=== PATIENT | male | born 1930 | race Hispanic/Latino ===

== ENCOUNTER 2021-05-18 22:12 | Emergency (ER) | payer OTHER, SELFPAY ==
[2021-05-18 22:53] LABS: #Eosinphils 0.3 thou/uL (0.0-0.7); #Monocytes 0.8 thou/uL (0.11-0.59); #Neutrophils 6.2 thou/uL (1.40-6.50); %Basophils 0.2 % (0.0-1.0); %Eosinophils 3.4 % (0.0-10.0); %Lymphocytes 21.2 % (21.0-51.0); %Monocytes 8.6 % (0.0-10.0); %Neutrophils 66.7 % (42.0-75.0); Hemoglobin 13.7 g/dL (14.0-18.0); Mean Corpuscular HGB CONC 33.6 g/dL (32.0-36.0); Mean Corpuscular Hemoglobin 33.8 pg (27.0-31.0); Mean Platelet Volume 6.8 fL (7.4-10.4); Platelet Count 250 thou/uL (130-400); RBC Distribution Width 12.2 % (11.5-14.5); Red Blood Cell (RBC) Count 4.05 mill/uL (4.70-6.10); White Blood Cell (WBC) Count 9.3 thou/uL (4.8-10.8)
[2021-05-18 23:35] LABS: ALT (SGPT) 22 U/L (8-55); AST (SGOT) 13 U/L (5-34); Albumin 3.9 g/dL (3.4-4.8); Alkaline Phosphatase 77 U/L (40-110); Anion Gap 11 mmol/L (10-20); BUN (Urea Nitrogen) 23 mg/dL (8.4-25.7); Bilirubin, Total 0.3 mg/dL (0.2-1.2); Calc. Creatinine Clearance 0 mL/min (70-130); Calcium 8.7 mg/dL (7.8-10.44); Carbon Dioxide 26 mmol/L (23-31); Chloride 104 mmol/L (98-107); Globulin 2.4 g/dL (2.4-3.5); Glucose 96 mg/dL (83-110); Potassium 4.1 mmol/L (3.5-5.1); Protein, Total 6.3 g/dL (5.8-8.1); Sodium 137 mmol/L (136-145)
== END 2021-05-19 00:32 | disposition home or self-care (01) ==
LOC: ERS 22:12
DX: S01.312A Laceration without foreign body of left ear, initial encounter (principal); W01.10XA Fall on same level from slipping, tripping and stumbling with subsequent striking against unspecified object, initial encounter; Z79.899 Other long term (current) drug therapy
CPT/HCPCS: 70450; 71045; 80053; 84484; 85025; 93005

== ENCOUNTER 2021-07-12 12:04 | Observation (INO) | payer MEDICARE, OTHER, SELFPAY ==
[2021-07-12 12:53] LABS: #Eosinphils 0.2 thou/uL (0.0-0.7); #Lymphocytes 1.1 thou/uL (1.20-3.40); #Monocytes 0.6 thou/uL (0.11-0.59); #Neutrophils 5.2 thou/uL (1.40-6.50); %Basophils 0.4 % (0.0-1.0); %Eosinophils 2.2 % (0.0-10.0); %Lymphocytes 15.7 % (21.0-51.0); %Monocytes 8.7 % (0.0-10.0); Hemoglobin 13.7 g/dL (14.0-18.0); Mean Corpuscular HGB CONC 33.3 g/dL (32.0-36.0); Mean Corpuscular Hemoglobin 33.9 pg (27.0-31.0); Mean Platelet Volume 6.3 fL (7.4-10.4); Platelet Count 267 thou/uL (130-400); RBC Distribution Width 12.5 % (11.5-14.5); Red Blood Cell (RBC) Count 4.05 mill/uL (4.70-6.10); White Blood Cell (WBC) Count 7.1 thou/uL (4.8-10.8)
[2021-07-12 13:14] LABS: ALT (SGPT) 17 U/L (8-55); AST (SGOT) 14 U/L (5-34); Albumin 3.9 g/dL (3.4-4.8); Alkaline Phosphatase 76 U/L (40-110); Anion Gap 12 mmol/L (10-20); BUN (Urea Nitrogen) 14 mg/dL (8.4-25.7); Bilirubin, Total 0.5 mg/dL (0.2-1.2); Calc. Creatinine Clearance 0 mL/min (70-130); Carbon Dioxide 29 mmol/L (23-31); Chloride 106 mmol/L (98-107); Globulin 2.5 g/dL (2.4-3.5); Glucose 104 mg/dL (83-110); Potassium 4.3 mmol/L (3.5-5.1); Protein, Total 6.4 g/dL (5.8-8.1); Sodium 143 mmol/L (136-145)
[2021-07-12] MEDS ORDERED: Atropine Sulfate 1 mg/1 ml Vial IVP PRN (14:09)
[2021-07-12] MEDS ORDERED: Acetaminophen 325 MG TAB PO PRN (14:22)
[2021-07-12] MEDS ORDERED: Ondansetron ODT 4 MG TAB PO PRN (14:22)
[2021-07-12] MEDS ORDERED: Ondansetron PF 4 MG/2 ML Vial IVP PRN (14:22)
[2021-07-12 14:23] LABS: Magnesium 2.2 mg/dL (1.6-2.6); Phosphorus 3.8 mg/dL (2.3-4.7)
[2021-07-12] MEDS ORDERED: Nitroglycerin 0.4 MG TAB (25 Tab Bottle) SL PRN (14:25)
[2021-07-12] MEDS ORDERED: Electrolyte Replacement Protocol 1 EACH FS SCH (14:30)
[2021-07-12] MEDS ORDERED: Sodium Chloride 0.9% 1,000 ML IV SCH (14:30)
[2021-07-12] MEDS ORDERED: Electrolyte Replacement Protocol FS PRN (14:45)
[2021-07-12 15:08] LABS: Troponin I 0.017 ng/mL (< 0.028)
[2021-07-12 19:22] LABS: Troponin I Less than 0.010 ng/mL (< 0.028)
[2021-07-12] MEDS ORDERED: Famotidine 20 MG TAB PO SCH (21:00)
[2021-07-12] MEDS: Senokot S 8.6-50 MG TAB PO SCH (21:33)
[2021-07-12] MEDS: OLANZapine 5 MG TAB PO SCH (21:33)
[2021-07-12] MEDS: OXcarbazepine 300 MG TAB PO SCH (21:33)
[2021-07-13 00:11] LABS: SARS-CoV-2 NAA Rapid Test Not Detected (NotDetected)
[2021-07-13 00:44] LABS: Bacteria/HPF None Seen HPF (None Seen); Bilirubin Negative (Negative); Blood, Urine Negative (Negative); Clarity Clear (Clear); Glucose, Urine (Dipstick) Normal (Negative); Ketone, Urine Negative (Negative); Leukocyte Negative Leu/uL (Negative); Nitrite Negative (Negative); Protein, Urine (Dipstick) Negative (Neg-Trace); RBC/HPF 0-3 HPF (0-3); Specific Gravity, Urine 1.015 (1.002-1.036); Squamous Epithelial 0-3 HPF (0-3); WBC/HPF 0-3 HPF (0-3)
[2021-07-13 00:59] LABS: Urine Culture Reflex No No
[2021-07-13] MEDS ORDERED: hydrALAZINE 20 MG/ML VIAL SLOW IVP PRN (05:44)
[2021-07-13 06:11] LABS: BUN (Urea Nitrogen) Less than 20 mg/dL (8.4-25.7)
[2021-07-13 06:44] LABS: Calc. Creatinine Clearance 52 mL/min (70-130); Calcium 8.7 mg/dL (7.8-10.44); Carbon Dioxide 27 mmol/L (23-31); Chloride 106 mmol/L (98-107); Glucose 92 mg/dL (83-110); Potassium 3.9 mmol/L (3.5-5.1); Sodium 139 mmol/L (136-145)
[2021-07-13 07:13] LABS: Anion Gap 10 mmol/L (10-20)
[2021-07-13] MEDS ORDERED: hydrALAZINE 20 MG/ML VIAL SLOW IVP SCH (08:15)
[2021-07-13] MEDS ORDERED: CEFAZOLIN 1 GM VIAL ONE ×2 (08:38)
[2021-07-13] MEDS ORDERED: Gentamicin 80 MG/2 ML VIAL ONE ×2 (08:38)
[2021-07-13] MEDS ORDERED: ceFAZolin 2 GM/DEX 5% 100 ML BAG ONE ×2 (08:38)
[2021-07-13] MEDS ORDERED: Enoxaparin Sodium 40 MG/0.4 ML SYRINGE SC SCH (09:00)
[2021-07-13] MEDS: Clopidogrel Bisulfate 75 MG TAB PO SCH (10:46)
[2021-07-13] MEDS: Senokot S 8.6-50 MG TAB PO SCH ×2 (10:47→21:09)
[2021-07-13] MEDS: OXcarbazepine 300 MG TAB PO SCH ×2 (10:47→21:09)
[2021-07-13] MEDS: Cyanocobalamin (Vitamin B-12) 1,000 MCG TAB PO SCH (10:47)
[2021-07-13] MEDS: Folic Acid 1 MG TAB PO SCH (10:47)
[2021-07-13] MEDS: Multivit, Therapeutic 1 TAB PO SCH (10:47)
[2021-07-13] MEDS: Polyethylene Glycol 3350 17 GM Packet PO SCH (10:47)
[2021-07-13] MEDS ORDERED: Lidocaine 5% Patch TD SCH (12:45)
[2021-07-13] MEDS ORDERED: HYDROcodone/Acetaminophen 5/325 mg Tablet PO PRN (18:18)
[2021-07-13] MEDS ORDERED: Donepezil HCl 5 MG TAB PO SCH (21:00)
[2021-07-13] MEDS: Metoprolol Tartrate 50 MG TAB PO SCH (21:09)
[2021-07-13] MEDS: OLANZapine 5 MG TAB PO SCH (21:09)
[2021-07-13] MEDS ORDERED: Transdermal Patch Removal TOP SCH (23:59)
[2021-07-14] MEDS ORDERED: Lidocaine 5% Patch TD SCH (09:00)
[2021-07-14] MEDS: Clopidogrel Bisulfate 75 MG TAB PO SCH (09:45)
[2021-07-14] MEDS: Cyanocobalamin (Vitamin B-12) 1,000 MCG TAB PO SCH (09:45)
[2021-07-14] MEDS: Polyethylene Glycol 3350 17 GM Packet PO SCH (09:46)
[2021-07-14] MEDS: Senokot S 8.6-50 MG TAB PO SCH (09:46)
[2021-07-14] MEDS: Folic Acid 1 MG TAB PO SCH (09:46)
[2021-07-14] MEDS: Metoprolol Tartrate 50 MG TAB PO SCH (09:46)
[2021-07-14] MEDS: OXcarbazepine 300 MG TAB PO SCH (09:46)
[2021-07-14] MEDS: Multivit, Therapeutic 1 TAB PO SCH (09:46)
[2021-07-14] MEDS ORDERED: Cephalexin 250 MG CAP PO SCH (12:30)
[2021-07-14 16:46] VITALS: BP 169/74; TEMP 98.7
[2021-07-14] MEDS ORDERED: Transdermal Patch Removal TOP SCH (21:00)
== END 2021-07-14 14:05 ==
LOC: ERS 12:04 → 2NO 13:57
PROVIDERS: ADMIT Internal Medicine; ATTEND Internal Medicine
PROC: 0JH606Z Insertion of Pacemaker, Dual Chamber into Chest Subcutaneous Tissue and Fascia, Open Approach (ICD-10-PCS; principal; 2021-07-13)
PROC: 02H63JZ Insertion of Pacemaker Lead into Right Atrium, Percutaneous Approach (ICD-10-PCS; 2021-07-13)
PROC: 02HK3JZ Insertion of Pacemaker Lead into Right Ventricle, Percutaneous Approach (ICD-10-PCS; 2021-07-13)
DX: R00.1 Bradycardia, unspecified (principal); R55 Syncope and collapse; I25.10 Atherosclerotic heart disease of native coronary artery without angina pectoris; G30.9 Alzheimer's disease, unspecified; F02.80 Dementia in other diseases classified elsewhere, unspecified severity, without behavioral disturbance, psychotic disturbance, mood disturbance, and anxiety; K21.9 Gastro-esophageal reflux disease without esophagitis; I48.0 Paroxysmal atrial fibrillation; I50.9 Heart failure, unspecified; J44.9 Chronic obstructive pulmonary disease, unspecified; D53.9 Nutritional anemia, unspecified; M19.90 Unspecified osteoarthritis, unspecified site; I08.8 Other rheumatic multiple valve diseases; Z66 Do not resuscitate; Z79.02 Long term (current) use of antithrombotics/antiplatelets; Z79.899 Other long term (current) drug therapy; Z88.6 Allergy status to analgesic agent; Z88.8 Allergy status to other drugs, medicaments and biological substances; Z91.041 Radiographic dye allergy status; Z95.1 Presence of aortocoronary bypass graft; Z95.5 Presence of coronary angioplasty implant and graft; Z20.822 Contact with and (suspected) exposure to COVID-19
CPT/HCPCS: 33208; 71045 ×2; 80048; 80053; 81001; 82607; 82746; 83735; 84100; 84484 ×2; 85025; 93005; 93306; 94760; 97116; 97139 ×5; 99285; C1785; C1898 ×2; U0002; 36415; 96374; 96376; G0378; J0360; J0690; J1580; J7050

== ENCOUNTER 2022-01-04 21:40 | Emergency (ER) | payer MEDICARE ==
[2022-01-04 22:42] LABS: Hemoglobin 13.4 g/dL (14.0-18.0); Mean Corpuscular Hemoglobin 33.5 pg (27.0-31.0); Mean Platelet Volume 6.2 fL (7.4-10.4); Platelet Count 240 thou/uL (130-400); RBC Distribution Width 12.3 % (11.5-14.5); Red Blood Cell (RBC) Count 4.02 mill/uL (4.70-6.10)
[2022-01-04 22:50] LABS: Bacteria/HPF None Seen HPF (None Seen); Bilirubin Negative (Negative); Blood, Urine Trace (Negative); Clarity Clear (Clear); Glucose, Urine (Dipstick) Normal (Negative); Ketone, Urine Trace mg/dL (Negative); Leukocyte Negative Leu/uL (Negative); Mucous/LPF Rare LPF (<2+); Nitrite Negative (Negative); Protein, Urine (Dipstick) 20 mg/dL (Neg-Trace); RBC/HPF 0-3 HPF (0-3); Specific Gravity, Urine 1.025 (1.002-1.036); Squamous Epithelial None Seen HPF (0-3); WBC/HPF 0-3 HPF (0-3); pH, Urine 5.5 (5.0-9.0)
[2022-01-04 22:56] LABS: Band 21 % (5-11); Hypochromia SLIGHT = 6-15 cells (100X) (0-5/hpf); Lymphocytes 3 % (21-51); MDiff Complete? YES; Monocytes 6 % (0-10); Neutrophil 70 % (42-75); Platelet Morphology Comment Appears Adequate
[2022-01-04 23:47] LABS: ALT (SGPT) 14 U/L (8-55); AST (SGOT) 24 U/L (5-34); Albumin 4.2 g/dL (3.4-4.8); Alkaline Phosphatase 71 U/L (40-110); Anion Gap 16 mmol/L (10-20); BUN (Urea Nitrogen) 20 mg/dL (8.4-25.7); Bilirubin, Total 0.5 mg/dL (0.2-1.2); Calc. Creatinine Clearance 0 mL/min (70-130); Calcium 9.2 mg/dL (7.8-10.44); Carbon Dioxide 26 mmol/L (23-31); Chloride 102 mmol/L (98-107); Globulin 3.3 g/dL (2.4-3.5); Glucose 112 mg/dL (83-110); Potassium 5.1 mmol/L (3.5-5.1); Protein, Total 7.5 g/dL (5.8-8.1); Sodium 139 mmol/L (136-145)
== END 2022-01-05 01:09 ==
LOC: ERS 21:40
DX: M54.2 Cervicalgia (principal); M54.9 Dorsalgia, unspecified; G30.9 Alzheimer's disease, unspecified; F02.80 Dementia in other diseases classified elsewhere, unspecified severity, without behavioral disturbance, psychotic disturbance, mood disturbance, and anxiety; Z79.899 Other long term (current) drug therapy
CPT/HCPCS: 70450; 72125; 72128; 72131; 80053; 81003; 81015; 82550; 85025; 87086; 93005